=== PATIENT | male | born 1950 | race Caucasian/White ===

== ENCOUNTER 2016-10-02 15:00 | Outpatient (RCR) | payer OTHER ==
--- NOTE | 2016-09-16 13:30 | PT/OT/ST INITIAL EVALUATION ---
Department of Health and Human Services Form Approved Health Care Financing Administration OMB No. [id number] PLAN OF CARE/ASSESSMENT FOR OUTPATIENT REHABILITATION (Complete for Initial Claims Only) 1. PATIENT'S NAME Guicho Morales 2. ACC # [id number] 3. [facility] [id number] 4. PROVIDER NO. [id number] 5. TYPE: PT 6. PRIOR HOSPITALIZATION None 7. PRIMARY DX Chronic low back pain 8. 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 9. ONSET DATE Many years ago 10. REFERRAL DATE 09/10/2016 11. SOC. DATE 09/15/2016 12. TIME OF EVAL 11:00 a.m. 12. REFERRING PHYSICIAN LÓPEZ Rosas 13. CHARGES/UNITS Manual therapy, and Therex 14. G CODES NA 15. PRIOR LEVEL OF FUNCTION; PERTINENT HISTORY (Prior therapy results, reason for referral.) S: Reason for referral: The patient was referred to physical therapy for chronic low back pain as a result of degenerative changes and poor core strength and limited flexibility. Description/mechanism of injury: The patient presents to physical therapy ambulating with a single-point cane. The patient has had previous physical therapy for his back. He reports that it is chronic pain. He has increased pain with prolonged standing or when walking. He notes the pain decreases when sitting. Occupational and social health history: The patient is retired. Personal health rating: Rates overall health as good. Relieving factors: The patient notes decreased pain when lying down or when taking pain meds. Pain level: Current pain rating is 7 to 8/10. He notes most of the pain is across his back. 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 16. INITIAL ASSESSMENT/SAFETY PRECAUTIONS/MEDICAL COMPLICATIONS (Level of function at start of care. Be specific, use objective measures, list problems.) O: APPEARANCE, OBSERVATION AND GAIT: The patient is a 66-year-old male. He presents to physical therapy ambulating with a single-point cane. He demonstrates a forward flexed posture with anterior pelvic tilt and decreased lumbar lordosis. Slight right lateral shift. PALPATION: Mild tenderness to palpation along lumbar paraspinals. No tenderness noted into his glute region. SPECIAL TESTS: The patient's Modified Oswestry low back pain disability questionnaire score was 46%. RANGE OF MOTION/FLEXIBILITY: Trunk range of motion flexion 30%, extension only to neutral. Bilateral side bending 40% all with pain. Lower extremity flexibility bilateral hamstrings 50 degrees with pulling. STRENGTH: Lower extremity strength hip flexion 4-/5 manual muscle test, left 4+/5 manual muscle test, knee extension right 4/5 manual muscle test, left 4+/5 manual muscle test. Knee flexion right 4/5 manual muscle test, left 4+/5 manual muscle test. CORE STRENGTH: The patient has difficulty rolling and going from supine to sitting. TODAY'S TREATMENT: Included initial evaluation followed by instruction of home exercise program and manual traction to the low back region. 17. INITIAL POC: (Specify procedures, modalities, short and salvage determiner goals) A: The patient presents with chronic low back pain. PROGNOSIS: The patient is a fair candidate for treatment due to other comorbidities and implantation of neurostimulator at back region limits certain modalities that can be used. SHORT TERM GOALS: The patient to be compliant with home exercise program in 2 weeks. The patient to demonstrate 50% trunk range of motion in all directions without pain in 4 weeks. The patient to be able to roll and change positions with less difficulty and pain in 4 weeks. The patient to demonstrate half a muscle grade improvement in lower extremity strength in 6 weeks. The patient to report a 10% decrease in modified Oswestry score in 6 weeks. P: The patient will be seen 2 times a week over the next 6 weeks. Treatment will include manual therapy, Therex, education on body mechanics and posture. 18. FREQUENCY 2 times per week 19. DURATION 6 weeks 20. FUNCTIONAL LEVEL (End of claim period) 21. PHYSICIAN SIGNATURE ? ON FILE OR ENTER HERE: 22. DATE: I certify the need for these services furnished under this plan of care and if for partial hospitalization. 23. CERTIFICATION FROM [facility]OUGH [id number]
[~2016-10-02 15:00] MED LIST: AMLO10TA4 PO; ASCO250T8 PO; ASPI-588 PO; BUPR100T15 PO; CALC667C PO; CETI-176 PO; CMBV14.7IN INH; FERR325T36 PO; FLUO20TA28 PO; FURO-125 PO; GBPN300C PO; HUM10VIA2 SQ; HYDR-229 PO; HYDR-3702 PO; HYDR200T PO; INSU100V32 SQ; IPRA30SP; LEVO1CAP2 PO; LISI10TA PO; LVF500T PO; METH500T PO; MIDO5TAB PO; MORP20CA19 PO; MTP25TSR PO; OXYC5TAB71 PO; PAMI30VI8 SQ; PANT40TA3 PO; POTA10CA43 PO; PRED5TAB PO; SIMV80TA2 PO; TEST200V3 IM; TR1C15 TOP; ZLP10T PO; [UNRECOGNIZED DRUG - CODE] TP
== END 2016-10-06 08:57 | disposition home or self-care (01) ==
LOC: PT 15:00
PROVIDERS: ATTEND Physician Assistant
DX: M54.5 Low back pain (principal); G89.29 Other chronic pain; M51.36 Other intervertebral disc degeneration, lumbar region